=== PATIENT | female | born 1980 | race Caucasian/White ===

== ENCOUNTER 2016-03-02 09:28 | Emergency (ER) | payer OTHER ==
[~2016-03-02] VITALS: Ht 162.6 cm; Wt 54.4 kg
--- NOTE | 2016-03-02 09:48 | ED GI/GU/ABDOMINAL COMPLAINT ---
History of Present Illness General Chief Complaint: Abdominal Pain/Flank Pain Stated Complaint: LOWER RT ABDOMINAL PAIN Source: patient Exam Limitations: no limitations Vital Signs & Intake/Output Vital Signs & Intake/Output Vital Signs Date Time Temp Pulse Resp B/P Pulse O2 O2 Flow FiO2 Ox Delivery Rate 03/02 1317 97.0 73 20 120/81 100 Room Air 03/02 1154 97.7 67 16 111/64 100 Room Air 03/02 0932 97.3 93 18 115/70 98 Room Air Room Air Allergies Coded Allergies: No Known Allergies (03/02/16) Reconcile Medications Escitalopram Oxalate 10 MG TABLET 1 TAB PO DAILY MENTAL HEALTH (Reported) Hydromorphone HCl (Dilaudid) 2 MG TABLET 1 TAB PO TID PRN PAIN Ketorolac Tromethamine 10 MG TABLET 1 TAB PO TID PRN PAIN RECEIVED IM IN ER Levothyroxine Sodium 50 MCG TABLET 1 TAB PO DAILY AC THYROID (Reported) Ondansetron HCl (Zofran) 4 MG TABLET 1 TAB PO Q6-8P PRN NAUSEA Triage Note: TRIAGE: 35 Y/O FEMALE PRESENTS C/O 6/10 RIGHT LOWER ABDOMINAL PAIN X24 HOURS. REPORTS PAIN HAD BEEN MILD, NOW WORSE. PAIN ORIGINATED IN RL ABD, THEN RADIATED TO RIGHT LOWER BACK. DENIES URIANRY DIFFICULTIES. Triage Nurses Notes Reviewed? yes ? N Is pt currently ? No Onset: Gradual Duration: constant Timing: recent history Severity Numbers: 7 Activities at Onset: none HPI: Patient is a 35-year-old female who presents emergency room stating that she had complaints of gradual onset of right lower abdominal and pelvic pain in which symptoms began yesterday in which she states that she initially thought it may be symptoms of ovarian cyst in which last menstrual period was approximately 7- 10 days ago in which she woke up today complaining of worsening right lower quadrant pain and now radiation to right flank and back. Patient did tolerate by mouth dinner yesterday with no change in symptoms. Last bowel movement was . Denies any fevers but does have chills.\ Denies any dysuria or hematuria vaginal bleeding vaginal discharge. Has nausea without emesis. Patient tried ibuprofen with mild relief of symptoms. (QUAN EARL,CORRINE) Past History Travel History Traveled to [place] past 21 day No Medical History Any Pertinent Medical History? 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 No (CORRINE SANDOVAL) Review of Systems Review of Systems Constitutional: Reports: no symptoms. EENTM: Reports: no symptoms. Respiratory: Reports: no symptoms. Cardiovascular: Reports: no symptoms. GI: Reports: see HPI, abdominal pain, nausea. Genitourinary: Reports: no symptoms. Musculoskeletal: Reports: no symptoms. Skin: Reports: no symptoms. Neurological/Psychological: Reports: no symptoms. Hematologic/Endocrine: Reports: no symptoms. Immunologic/Allergic: Reports: no symptoms. All Other Systems: Reviewed and Negative (CORRINE SANDOVAL) Physical Exam Physical Exam General Appearance: mild distress Gastrointestinal: MODERATE RIGHT LOWER QUADRANT PAIN NO PERITONEAL SIGNS NO REBOUND TENDERNESS Comments: HEENT: Normal EENT exam, Neck: Supple, no lymphadenopathy, normal range of motion without pain or tenderness Back: Nontender, no CVA tenderness. Cardiovascular: Regular rate and rhythms no murmurs rubs or gallops, normal JVP Respiratory: Chest nontender. No respiratory distress.breath sounds clear to auscultation bilaterally Extremity: No edema, no calf tenderness to palpation, normal and equal pulses. Neuro: Alert oriented x3, motor sensory normal, Skin: No appreciable rash on exposed skin, skin is warm and dry. Psych: Mood and affect is normal, memory and judgment is normal. Core Measures ACS in differential dx? No Severe Sepsis Present: No Septic Shock Present: No (CORRINE SANDOVAL) Progress Differential Diagnosis: AAA, AMI, appendicitis, biliary colic, bowel obstruction , colon cancer, cholecystitis, diverticulitis, ectopic , endometritis, esophageal varices, gastritis, hepatitis, hernia, hemorrhoids, ischemic bowel, inflamm bowel dis, intrauterine , kidney stone, Janelle-Júnior tear, ovarian cyst, ovarian torsion, pancreatitis, PID/cervicitis, peptic ulcer, PUD/ GERD, perforated viscous, SBO, threatened AB, UTI/pyelo Plan of Care: Orders Procedure Date/time Status Add-on Test (ER Only) 03/02 1133 Active LIPASE 03/02 1041 Complete COMPREHENSIVE METABOLIC PANEL 03/02 1041 Complete CBC WITHOUT DIFFERENTIAL 03/02 1041 Complete AMYLASE 03/02 1041 Complete URINE DRUGS OF ABUSE 03/02 1032 Complete URINE 03/02 1032 Complete URINALYSIS 03/02 1032 Complete Current Medications Sig/Bobby Start time Last Medication Dose Stop Time Status Admin Morphine Sulfate 6 MG ONCE ONE 03/02 1045 CAN (Morphine) 03/02 1046 Laboratory Tests 03/02/16 1053: Anion Gap 9, Estimated GFR > 60, BUN/Creatinine Ratio 18.6, Glucose 91, Calcium 9.1, Total Bilirubin 0.8, AST 16, ALT 21, Alkaline Phosphatase 68, Total Protein 7.2, Albumin 4.2, Globulin 3.0, Albumin/Globulin Ratio 1.4, Amylase 34, Lipase 28, CBC w Diff NO MAN DIFF REQ, RBC 4.42, MCV 87.5, MCH 29.5, RDW 13.0, MPV 8.0, Gran % 54.7, Lymphocytes % 35.0, Monocytes % 5.4, Eosinophils % 4.5, Basophils % 0.4, Absolute Granulocytes 2.2, Absolute Lymphocytes 1.4, Absolute Monocytes 0.2 , Absolute Eosinophils 0.2, Absolute Basophils 0, PUBS MCHC 33.7, Urine Color YEL, Urine Clarity CLDY H, Urine pH 6.0, Ur Specific Gordon >= 1.030, Urine Protein TRACE H, Urine Ketones NEG, Urine Nitrite NEG, Urine Bilirubin NEG, Urine Urobilinogen 0.2, Ur Leukocyte Esterase NEG, Ur Microscopic SEDIMENT EXAMINED, Urine RBC 1-3, Urine WBC 1-3 H, Ur Epithelial Cells PACKD H, Urine Hemoglobin NEG, Urine Glucose NEG, Urine Test NEGATIVE 03/02/16 1032: Urine Opiates Screen < 100.00, Methadone Screen 47, Barbiturate Screen < 60, Ur Phencyclidine Scrn < 6.00, Amphetamines Screen < 100, U Benzodiazepines Scrn < 85, Urine Cocaine Screen < 50, Urine Cannabis Screen < 5.00 Reevaluation the patient had no improvement of pain which morphine will be administered CT scan was remarkable for 4.6 cm ovarian cyst. I discussed results with patient however she had worsening abdominal pain in which Dilaudid was administered. Patient then states that she personally called her ASSISTANT PROFESSOR SCULPTURE which they had requested a ultrasound in which this was administered showing confirmation of ovarian cysts. Patient then was given Dilaudid again which her pain was minimally improved in which after second dose of Dilaudid she has significant resolution of pain. Patient was given copies of CT scan and ultrasound and blood work for follow-up with her ASSISTANT PROFESSOR SCULPTURE in which I strongly advised patient to follow up on Friday. Patient was able tolerate by mouth on discharge. There are no concerns at this time of ovarian torsion or appendicitis. Discussed disposition with Dr. Thompson who agrees (QUAN EARL,CORRINE) Diagnostic Imaging: Viewed by Me: CT Scan, Ultrasound. Radiology Impression: acute abnormality Initial ED EKG: none Comments: PATIENT: AMY TEJEDA PRESENT AGE: 35 PATIENT ACCOUNT NO: [id number] : 78 LOCATION: [facility] ORDERING PHYSICIAN: CORRINE EARL SERVICE DATE: 03/02/16 EXAM TYPE: CAT - CT ABD & PELVIS W IV CONTRAST EXAMINATION: CT ABDOMEN AND PELVIS WITH CONTRAST CLINICAL INFORMATION: 35-year-old female patient with right lower quadrant pain. COMPARISON: None. TECHNIQUE: Multidetector volumetric imaging was performed of the abdomen and pelvis. After the IV administration of 250 mL of Omnipaque 300 intravenous contrast. Sagittal and coronal reformatted images were obtained on the technologist's workstation. DLP: 250 mGy-cm. FINDINGS: Solution Maker view demonstrates an increased burden of formed stool throughout the colon. No obstruction is suspected. LUNG BASES: The visualized lung bases are unremarkable. LIVER, GALLBLADDER, AND BILIARY TREE: The liver is normal in size, shape, and attenuation. No biliary ductal dilatation is present. A 7 mm hemangioma is located in Couinaud segment 7. Periportal tracking is due to increased hydration. The gallbladder is normal. PANCREAS: Unremarkable. SPLEEN: Unremarkable. ADRENAL GLANDS: Unremarkable. KIDNEYS AND URETERS: The kidneys are normal in size, shape, and attenuation. No hydronephrosis, hydroureter, or calculi seen. No perinephric stranding. BLADDER: Partially filled GASTROINTESTINAL TRACT: The small and large bowel are unremarkable. The appendix is unremarkable. ABDOMINAL WALL: No significant hernia is appreciated. LYMPH NODES: Normal. VASCULAR: Unremarkable. PELVIC VISCERA: Uterus is in the neutral position. Left ovary is normal. Small functional cysts are present. A thin-walled unilocular cyst measuring 4.6 cm in diameter arises from the right ovary. There is no pelvic free fluid. OSSEOUS STRUCTURES: Unremarkable. IMPRESSION: 1. Normal appendix. 2. 4.6 cm diameter right ovarian cyst. PATIENT: AMY TEJEDA PRESENT AGE: 35 PATIENT ACCOUNT NO: [id number] : 78 LOCATION: [facility] ORDERING PHYSICIAN: CORRINE EARL SERVICE DATE: 03/02/16-9355 EXAM TYPE: US - US-TRANSVAGINAL EXAMINATION: ULTRASOUND OF THE PELVIS CLINICAL INFORMATION: Right ovarian cyst. Evaluate for torsion. Patient states right-sided pain. COMPARISON: CT scan of the abdomen and pelvis dated 03/02/2016. TECHNIQUE: Transabdominal and transvaginal pelvic ultrasound. A transvaginal study was performed in addition to the transabdominal study which did not yield an adequate examination of the uterus and ovaries due to superimposed distended gas-filled loops of bowel. FINDINGS: Uterus: The uterus is anteverted and normal in size and appearance, measuring 6.9 x 3.6 x 4.0 cm. The endometrial stripe thickness is normal, measuring 0.3 cm in thickness. No focal myometrial mass is seen. The cervical length is normal measuring 3.4 cm. Ovaries: The ovaries bilaterally are visualized and demonstrate normal arterial and venous flow. The right ovary measures 3.5 x 2.2 x 3.7 cm (23.1 mL volume). Multiple small follicles are seen within the right ovary. In addition, there is a 4.1 x 2.9 x 3.7 cm cystic mass in the right adnexa, adjacent to or perhaps exophytically arising from the right ovary. This is thin-walled and shows no solid papillary component or abnormal vascular flow on Doppler imaging. There is an additional 1.3 x 1.2 x 2.4 cm isoechoic mass within the right ovary, perhaps representing a hemorrhagic cyst versus a solid ovarian neoplasm. The left ovary measures 2.6 x 1.9 x 2.6 cm (6.5 mL volume) and demonstrates several small follicles. Other: No adnexal mass or free fluid collection seen. IMPRESSION: 1. No evidence of ovarian torsion. 2. Large simple cystic right adnexal mass is seen, measuring up to 4.1 cm in size. Additional smaller complex isoechoic mass is seen in the right ovary, possibly a hemorrhagic cyst versus a solid ovarian neoplasm. Further evaluation with MRI scan of the pelvis is recommended. 3. Left ovary is normal. 4. Uterus and endometrium normal. (CORRINE SANDOVAL) Departure Departure Disposition: HOME OR SELF CARE Condition: Stable Clinical Impression Primary Impression: Ovarian cyst Referrals: CLARIBEL ELLIS MD (PCP/Family) Additional Instructions: As discussed begin the prescription of ketorolac for pain relief. Begin the prescription Dilaudid for breakthrough pain relief. Begin the prescription of Zofran for nausea. If symptoms worsen return to emergency room. On Friday follow-up with your ASSISTANT PROFESSOR SCULPTURE please provide them with copies of labs and ultrasound and CT scan for follow-up. Departure Forms: Customer Survey General Discharge Information Prescriptions: Current Visit Scripts Hydromorphone HCl (Dilaudid) 1 TAB PO TID PRN PAIN #10 TAB Ketorolac Tromethamine 1 TAB PO TID PRN PAIN #15 TAB RECEIVED IM IN ER Ondansetron HCl (Zofran) 1 TAB PO Q6-8P PRN NAUSEA #15 TAB (CORRINE SANDOVAL) PA/AIRCRAFT MECHANIC ELECTRICAL AND RADIO Co-Sign Statement Statement: ED Attending supervision documentation- [] I saw and evaluated the patient. I have also reviewed all the pertinent lab results and diagnostic results. I agree with the findings and the plan of care as documented in the PA's/AIRCRAFT MECHANIC ELECTRICAL AND RADIO's documentation. [X] I have reviewed the ED Record and agree with the PA's/AIRCRAFT MECHANIC ELECTRICAL AND RADIO's documentation. [] Additions or exceptions (if any) to the PAs/AIRCRAFT MECHANIC ELECTRICAL AND RADIO's note and plan are summarized below: [] (JIA ARZATE,SOFIA Barrios)
[2016-03-02] MEDS ORDERED: LEVOTHYROXINE50 MCG PO (10:26)
[2016-03-02] MEDS ORDERED: ESCITALOPRAM OX10 MG PO (10:26)
[2016-03-02 11:04] LABS: ABSOLUTE BASOPHIL COUNT 0 /CUMM (0.0-0.2); ABSOLUTE EOSINOPHIL COUNT 0.2 /CUMM (0.0-0.7); ABSOLUTE GRANULOCYTE CT 2.2 /CUMM (1.4-6.5); ABSOLUTE LYMPH COUNT 1.4 /CUMM (1.2-3.4); ABSOLUTE MONOCYTE COUNT 0.2 /CUMM (0.10-0.60); BASOPHIL % 0.4 % (0.0-2.0); EOSINOPHIL % 4.5 % (0-5); GRANULOCYTE % 54.7 % (42.2-75.2); HEMATOCRIT 38.6 % (37-47); MEAN CORPUSCULAR HGB 29.5 PG (27.0-31.0); MEAN CORPUSCULAR HGB CONC 33.7 G/DL (33.0-37.0); MEAN CORPUSCULAR VOLUME 87.5 FL (81.0-99.0); PLATELET COUNT 265 /CUMM (130-400); RED BLOOD CELL CT 4.42 /CUMM (4.20-5.40)
--- NOTE | 2016-03-02 12:35 | CT SCAN REPORT ---
EXAMINATION: CT ABDOMEN AND PELVIS WITH CONTRAST CLINICAL INFORMATION: 35-year-old female patient with right lower quadrant pain. COMPARISON: None. TECHNIQUE: Multidetector volumetric imaging was performed of the abdomen and pelvis. After the IV administration of 250 mL of Omnipaque 300 intravenous contrast. Sagittal and coronal reformatted images were obtained on the technologist's workstation. DLP: 250 mGy-cm. FINDINGS: Copy Messenger view demonstrates an increased burden of formed stool throughout the colon. No obstruction is suspected. LUNG BASES: The visualized lung bases are unremarkable. LIVER, GALLBLADDER, AND BILIARY TREE: The liver is normal in size, shape, and attenuation. No biliary ductal dilatation is present. A 7 mm hemangioma is located in Couinaud segment 7. Periportal tracking is due to increased hydration. The gallbladder is normal. PANCREAS: Unremarkable. SPLEEN: Unremarkable. ADRENAL GLANDS: Unremarkable. KIDNEYS AND URETERS: The kidneys are normal in size, shape, and attenuation. No hydronephrosis, hydroureter, or calculi seen. No perinephric stranding. BLADDER: Partially filled GASTROINTESTINAL TRACT: The small and large bowel are unremarkable. The appendix is unremarkable. ABDOMINAL WALL: No significant hernia is appreciated. LYMPH NODES: Normal. VASCULAR: Unremarkable. PELVIC VISCERA: Uterus is in the neutral position. Left ovary is normal. Small functional cysts are present. A thin-walled unilocular cyst measuring 4.6 cm in diameter arises from the right ovary. There is no pelvic free fluid. OSSEOUS STRUCTURES: Unremarkable. IMPRESSION: 1. Normal appendix. 2. 4.6 cm diameter right ovarian cyst.
[2016-03-02 13:17] VITALS: BP 120/81
--- NOTE | 2016-03-02 14:59 | ULTRASOUND REPORT ---
EXAMINATION: ULTRASOUND OF THE PELVIS CLINICAL INFORMATION: Right ovarian cyst. Evaluate for torsion. Patient states right-sided pain. COMPARISON: CT scan of the abdomen and pelvis dated 03/02/2016. TECHNIQUE: Transabdominal and transvaginal pelvic ultrasound. A transvaginal study was performed in addition to the transabdominal study which did not yield an adequate examination of the uterus and ovaries due to superimposed distended gas-filled loops of bowel. FINDINGS: Uterus: The uterus is anteverted and normal in size and appearance, measuring 6.9 x 3.6 x 4.0 cm. The endometrial stripe thickness is normal, measuring 0.3 cm in thickness. No focal myometrial mass is seen. The cervical length is normal measuring 3.4 cm. Ovaries: The ovaries bilaterally are visualized and demonstrate normal arterial and venous flow. The right ovary measures 3.5 x 2.2 x 3.7 cm (23.1 mL volume). Multiple small follicles are seen within the right ovary. In addition, there is a 4.1 x 2.9 x 3.7 cm cystic mass in the right adnexa, adjacent to or perhaps exophytically arising from the right ovary. This is thin-walled and shows no solid papillary component or abnormal vascular flow on Doppler imaging. There is an additional 1.3 x 1.2 x 2.4 cm isoechoic mass within the right ovary, perhaps representing a hemorrhagic cyst versus a solid ovarian neoplasm. The left ovary measures 2.6 x 1.9 x 2.6 cm (6.5 mL volume) and demonstrates several small follicles. Other: No adnexal mass or free fluid collection seen. IMPRESSION: 1. No evidence of ovarian torsion. 2. Large simple cystic right adnexal mass is seen, measuring up to 4.1 cm in size. Additional smaller complex isoechoic mass is seen in the right ovary, possibly a hemorrhagic cyst versus a solid ovarian neoplasm. Further evaluation with MRI scan of the pelvis is recommended. 3. Left ovary is normal. 4. Uterus and endometrium normal.
[2016-03-02] MEDS ORDERED: DILAUDID2 M1 PO (15:30)
[2016-03-02] MEDS ORDERED: ZOFRAN4 M2 PO (15:30)
[2016-03-02] MEDS ORDERED: KETOROLAC TROME10 M1 PO (15:30)
== END 2016-03-02 15:58 ==
LOC: ERH 09:28
PROVIDERS: Physician Assistant
DX: N83.201 Unspecified ovarian cyst, right side (principal)
CPT/HCPCS: 74177; 80307; 81001; 81025; 96374; 96375; 96376; J1885; J2405